=== PATIENT | male | born 1965 | race Caucasian/White ===

== ENCOUNTER 2023-08-12 01:51 | Emergency (ER) | payer BC, SELFPAY ==
[2023-08-12 01:54] VITALS: BP 183/100
--- NOTE | 2023-08-12 02:20 | ED.GENMED ---
History of Present Illness
General
Chief Complaint: Musculo-Skeletal Complaint
Source: patient and spouse
Time Seen by Provider: 08/12/23 02:12
Travel History
Have you had any contact with someone who has COVID-19?: No
Do you have any symptoms of coronavirus? Fever > 100 degrees, chills, cough, shortness of breath, sore throat, loss of taste or smell, muscle aches, or headache?: No
History of Present Illness
History of Present Illness:
57-year-old male presents to the emergency room complaining of pain in his neck radiating to his right shoulder and arm. Pain has been present for the past couple weeks but has become more severe over the past couple days. Tonight the pain was so
severe it was preventing him from sleeping. Pain is worse when he extends his neck backwards. No fever or chills. No recent trauma. He was prescribed a muscle relaxant and ibuprofen by his family doctor but this has not helped. No weakness in
his right arm. No specific chest pain.
Past History
Past History
ED Past Medical History: Other (Syncope with a positive tilt table test on Toprol XL for 14 years, sleep apnea with HS CPAP, mild hypertension)
Social History
Tobacco: Non-smoker
Alcohol: None
Family History
Family History: CAD and Other (He has a grandfather with polycystic kidneys but he has been tested and is negative)
Phy Exam
Physical Exam
Physical Exam:
General: Awake, Alert, Oriented X3. Patient peers uncomfortable, pacing in the room. Pain exacerbated by extension at the neck of compression on the top of his head
Vitals: unremarkable
Head: Atraumatic
Eyes: Pupils equal, EOMI
Throat: Airway intact, no exudates
Neck: Trachea midline
Lungs: Clear and equal b/l
Heart: Regular rate, no murmurs
Abd: Soft, Nontender, No pulsatile mass
Neuro: Cranial nerves intact, muscle strength equal bilaterally
Skin: Warm, dry, no rash
Extremities: pulses equal b/l, no edema
Course
Orders/Labs/Results
Orders:
Orders
08/12/23 02:19
HYDROmorphone [Dilaudid] 0.5 mg IV NOW STA
08/12/23 02:20
Electrocardiogram (*1) Urgent
Reason for Study: Chest Pain
EKG- Treatment ONCE
08/12/23 02:34
Basic Metabolic Panel Urgent
Complete Blood Count/With Diff Urgent
Troponin I Urgent
08/12/23 02:48
Gabapentin [Neurontin] 300 mg PO NOW STA
08/12/23 03:40
Dexamethasone [Decadron] 4 mg PO NOW STA
Abnormal Lab Results
08/12/23
02:34
MCH 31.7 H pg
(27.0-31.0)
BUN 24 H mg/dl
(9-20)
Glucose 109 H mg/dl
(70-99)
08/12/23 02:34
08/12/23 02:34
Vital Signs
Initial and Last Documented VS:
Initial Vital Signs
Temp Pulse Resp BP Pulse Ox
97.9 F 57 16 183/100 100
08/12/23 01:54 08/12/23 01:54 08/12/23 01:54 08/12/23 01:54 08/12/23 01:54
Last Documented Vital Signs
Temp Pulse Resp BP Pulse Ox
97.9 F 49 14 132/86 99
08/12/23 01:54 08/12/23 02:43 08/12/23 02:43 08/12/23 02:43 08/12/23 02:43
MDM/Problems Addressed
Differential Diagnosis Includes:
Cervical radiculopathy, shingles, anginal equivalent
MDM/Problems Addressed:
Patient presents with pain emanating from the neck down to his shoulder and arm. He has an MRI as an outpatient which does not fact show changes throughout his cervical spine particular at the C5-C6 level. At that level he has central disc
herniation. Patient treated with gabapentin, steroids. We will discharge him with prescriptions for gabapentin, Medrol Dosepak and oxycodone. He has an appointment with spine surgery on Sunday.
*Pulse Oximetry
Patient hypoxic: no
*Critical Care Note
Total Time (30-74mins, 75-104mins- exclusive of procedures): Not Applicable
ED Attending Note
-
Portions of this chart may have been created with voice recognition software.� Occasional wrong word or��sound alike� substitutions may have occurred due to the inherent limitations of voice recognition software.
Discharge Plan
Departure
Patient Disposition: Home (Routine Discharge)
Date of Disposition: 08/12/23
Time of Disposition: 03:41
Patient with high blood pressure during this ER visit?: No
Condition: Good
Discharge Problem:
Cervical radiculopathy
Instructions: Radiculopathy (DC)
Prescriptions:
New
gabapentin 300 mg capsule
300 mg PO TID PRN (Reason: pain) Qty: 30 0RF
methylprednisolone [Medrol (Marcus)] 4 mg tablets,dose pack
See Rx Instructions .ROUTE .COMPLEX Qty: 21 0RF
Rx Instructions:
orally per package directions
oxycodone 5 mg tablet
5 mg PO Q6H PRN (Reason: Pain) Qty: 12 0RF
No Action
cholecalciferol (vitamin D3) 2,000 UNIT tablet
2,000 unit PO DAILY
omega 1-cgx-ekb-fish oil [Fish Oil] 1 EACH capsule
2,000 mg PO DAILY
ascorbic acid (vitamin C) [Vitamin C] 1,000 mg Tablet
1,000 mg PO DAILY
vitamin B complex [B Complex] Capsule
1 cap PO DAILY
zinc 50 mg Capsule
50 mg PO DAILY
vitamin K2 100 mcg Capsule
100 mcg PO DAILY
Fish Oil
1 tab PO DAILY
cinnamon bark extract
150 mg PO DAILY
magnesium
177 mg PO DAILY
magnesium
77 mg PO DAILY
olive leaf extract
750 mg PO DAILY
turmeric
1,500 mg PO DAILY
Referrals:
Petey Guerra MD [Family Provider] -
Interventions
Interventions:
*Risk Screen - Suicide Last Done: 08/12/23 01:54
*General Assessment Last Done: 08/12/23 01:54
*Neglect/Abuse Screening Last Done: 08/12/23 01:54
*ED COVID-19 Vaccine History Last Done: 08/12/23 02:36
*Nursing Disposition Last Done: 08/12/23 04:08
ED-Musculoskeletal Assessment Last Done: 08/12/23 02:55
Discharge Date and Time
Print Language: MALTESE
[2023-08-12 02:39] VITALS: BMI 27.2
[2023-08-12 02:43] VITALS: BP 132/86
[2023-08-12 02:43] LABS: % Basophils 0.5 % (0-2); % Eosinophils 2.9 % (0-6); % Immature Granulocytes 0.3 % (0-0.5); % Lymphocytes 28.7 % (20.5-51.1); % Monocytes 8.3 % (1.7-9.3); % Neutrophils 59.3 % (42.2-75.2); Absolute Eosinophils 0.2 10^3/uL (0-0.7); Absolute Lymphocytes 1.9 10^3/uL (1.2-3.4); Absolute Monocytes 0.5 10^3/uL (0.1-0.6); Absolute Neutrophils 3.8 10^3/uL (1.4-6.5); Hematocrit 41.4 % (39.0-52.0); Hemoglobin 15.1 g/dL (13.0-18.0); Mean Corp Hgb Conc. 36.5 g/dL (33.0-37.0); Mean Corpuscular Hgb 31.7 pg (27.0-31.0); Mean Corpuscular Volume 86.8 fL (80.0-94.0); Nucleated Red Blood Cells % 0 % (-); Platelet Count 226 10^3/uL (130-400); Red Blood Cell Count 4.77 10^6/uL (4.70-6.10); Red Cell Dist. Width 11.9 % (11.5-14.5); White Blood Cell Count 6.5 10^3/uL (4.8-10.8)
[2023-08-12] MEDS: NEURONTIN 300 MG PO (02:54)
[2023-08-12 03:00] LABS: Blood Urea Nitrogen 24 mg/dl (9-20); Calcium 9.1 mg/dl (8.4-10.2); Carbon Dioxide 27 mmol/L (22-30); Chloride 104 mmol/L (98-107); Estimated Creatinine Clearance 77 ml/min; Glucose 109 mg/dl (70-99); Potassium 4.3 mmol/L (3.5-5.1); Sodium 139 mmol/L (135-145); eGFR > 60.00
[2023-08-12 03:11] LABS: Troponin I 0.015 ng/ml
[2023-08-12] MEDS: DECADRON 4 MG PO (04:00)
== END 2023-08-12 04:08 | disposition home or self-care (01) ==
LOC: EMR 01:51
PROVIDERS: EMERGENCY PHYSICIAN Emergency Medicine; FAMILY PHYSICIAN Internal Medicine
DX: M54.12 Radiculopathy, cervical region (principal); G47.30 Sleep apnea, unspecified; I10 Essential (primary) hypertension; Z82.49 Family history of ischemic heart disease and other diseases of the circulatory system
CPT/HCPCS: 99283; 96374; 80048; 84484; 85025; 93005

== ENCOUNTER 2023-08-21 13:46 | Emergency (ER) | payer BC, SELFPAY ==
[2023-08-21 13:55] VITALS: BP 178/110
--- NOTE | 2023-08-21 16:06 | ED.GENMED ---
History of Present Illness
General
Chief Complaint: Musculo-Skeletal Complaint
Source: patient
Exam Limitations: none
Time Seen by Provider: 08/21/23 15:10
Nursing documentation reviewed up to this point in time: agreed with
Travel History
Have you had any contact with someone who has COVID-19?: No
Do you have any symptoms of coronavirus? Fever > 100 degrees, chills, cough, shortness of breath, sore throat, loss of taste or smell, muscle aches, or headache?: No
History of Present Illness
History of Present Illness:
Patient is a 57-year-old male who presents to the ER for evaluation. Patient has had cervical radiculopathy for the past 4 weeks and has been seen by Dr. Cristina of [facility]. He did have an MRI and did have an epidural August 15. He continues to
have neck pain but now the past 1 week he has had some low back pain and has pain shooting down both legs worse in the left leg associated with numbness tingling and he does feel slightly weak at times. He reports because of his neck pain he has
been sleeping semisitting up and more on his lower back. HE has no bowel/bladder incontinence. He at times also feels pain in his groin/penis region . HE has no urinary frequency urgency or dysuria. He was seen here previously on August 11 for
the neck pain at that time was prescribed gabapentin oxycodone and steroids. He will still take some oxycodone at night to sleep but is not taking gabapentin or steroids. He does however have a new pack of steroids at home. He tells me he called
his physician today and because of the symptoms in his legs which are new for the past week and with a concern for possible weakness he was sent to the ER for evaluation.
Past History
Past History
ED Past Medical History: Other (Syncope with a positive tilt table test on Toprol XL for 14 years, sleep apnea with HS CPAP, mild hypertension)
Social History
Tobacco: Non-smoker
Alcohol: None
Family History
Family History: CAD and Other (He has a grandfather with polycystic kidneys but he has been tested and is negative)
Review of Systems
Review of Systems
Allergies reviewed?: Yes
All Other Systems: ROS reviewed and negative except as documented in HPI and ROS
Constitutional: Reports no symptoms
EENT: Reports no symptoms
Respiratory: Reports no symptoms
Cardiac: Reports no symptoms
ABD/GI: Reports no symptoms
: Denies flank pain, incontinence or urgency
Musculoskeletal: Reports neck pain and back pain
Skin: Reports no symptoms
Neurological: Reports numbness (intermittent numbness/tingling weakness in left leg feels also slightly weaker in right hand)
Psychiatric: Reports no symptoms
Phy Exam
General Physical Exam
General Presentation: no apparent distress
General age: appears stated age
General Skin: warm and dry
General Hydration: appears well hydrated
Neurological Exam
Neurological Exam: alert, oriented x3 and other (Intact sensation to bilateral upper and lower extremities normal nuisance animal damage control agent strength to bilateral upper extremities normal strength bilateral lower legs normal dorsiflexion plantarflexion bilaterally normal
patellar reflexes )
Musculoskeletal Exam
Musculoskeletal Exam: full ROM and other (no swelling on exam)
Skin Exam
Skin Exam: normal color and warm/dry
Course
Orders/Labs/Results
Orders:
Orders
08/21/23 16:14
Dexamethasone Sod Phosphate [Decadron] 10 mg IM NOW STA
Vital Signs
Initial and Last Documented VS:
Initial Vital Signs
Pulse Resp Pulse Ox
76 18 96
08/21/23 13:54 08/21/23 13:54 08/21/23 13:54
Last Documented Vital Signs
Temp Pulse Resp BP Pulse Ox
98.9 F 65 18 167/93 96
08/21/23 13:55 08/21/23 16:54 08/21/23 13:54 08/21/23 16:54 08/21/23 13:54
MDM/Problems Addressed
Differential Diagnosis Includes:
Not limited to cervical radiculopathy, sciatica
MDM/Problems Addressed:
Patient as document is a 57-year-old male with known cervical radiculopathy had MRI had an epidural now also with pain radiating from back to left lower leg no bowel or bladder incontinence. He did feel some weakness in his leg and hand
intermittently which is what prompted him to come to the ER. He is followed by orthopedics Dr. Colorado at [facility].
On exam patient is in no acute distress and has no weakness on exam he has normal upper lower extremity strength normal patellar reflexes normal sensation no bowel or bladder incontinence. Patient is currently not on steroids we will give 1 dose of
Decadron here in the ER I did speak with Amanuel on-call Dr. Dominguez and given the fact that patient has a normal exam with discharge home with outpatient followed by orthopedics tomorrow patient is to call the office. Will send a higher dose for
steroids as he did not feel the Medrol Dosepak previously given helped and will also resend gabapentin. Patient does have oxycodone if needed. He is to return if any worsening of symptoms.
*Pulse Oximetry
Patient hypoxic: no
*Critical Care Note
Total Time (30-74mins, 75-104mins- exclusive of procedures): Not Applicable
Data Reviewed
Review of Other/Old Records Reveals: Other (previous ED visit )
ED Attending Note
-
Portions of this chart may have been created with voice recognition software.� Occasional wrong word or��sound alike� substitutions may have occurred due to the inherent limitations of voice recognition software.
Discharge Plan
Departure
Patient Disposition: Home (Routine Discharge)
Date of Disposition: 08/21/23
Time of Disposition: 16:41
Patient with high blood pressure during this ER visit?: Yes
Condition: Fair
Covid-19: Not Applicable
Discharge Problem:
Radiculopathy
Instructions: Radiculopathy (DC), Radiculopathy of the neck and back (including sciatica)
Prescriptions:
New
prednisone 50 mg tablet
50 mg PO DAILY Qty: 5 0RF
gabapentin 300 mg capsule
300 mg PO TID Qty: 20 0RF
No Action
cholecalciferol (vitamin D3) 2,000 UNIT tablet
2,000 unit PO DAILY
omega 7-cyj-vhy-fish oil [Fish Oil] 1 EACH capsule
2,000 mg PO DAILY
ascorbic acid (vitamin C) [Vitamin C] 1,000 mg Tablet
1,000 mg PO DAILY
vitamin B complex [B Complex] Capsule
1 cap PO DAILY
zinc 50 mg Capsule
50 mg PO DAILY
vitamin K2 100 mcg Capsule
100 mcg PO DAILY
Fish Oil
1 tab PO DAILY
cinnamon bark extract
150 mg PO DAILY
magnesium
177 mg PO DAILY
magnesium
77 mg PO DAILY
olive leaf extract
750 mg PO DAILY
turmeric
1,500 mg PO DAILY
gabapentin 300 mg capsule
300 mg PO TID PRN (Reason: pain) Qty: 30 0RF
methylprednisolone [Medrol (Marcus)] 4 mg tablets,dose pack
See Rx Instructions .ROUTE .COMPLEX Qty: 21 0RF
Rx Instructions:
orally per package directions
oxycodone 5 mg tablet
5 mg PO Q6H PRN (Reason: Pain) Qty: 12 0RF
Referrals:
Petey Guerra MD [Family Provider] -
Sushil Colorado MD [Non-Admitting Privileges] -
Activity Restrictions/Additional Instructions:
As discussed you were given 1 dose of steroid in your muscle here in the ER you may start steroids tomorrow: Prednisone 50 mg once daily for the next 5 days. In addition a new prescription for Gabapentin was sent to the pharmacy take as directed.
You may take your existing oxycodone if needed for pain and sleep. Follow-up with your orthopedic doctor give him a call tomorrow. Return if any worsening of symptoms, if worsening weakness loss of bowel or bladder worsening pain or any further
concerns.
Interventions
Interventions:
*Risk Screen - Suicide Last Done: 08/21/23 15:17
*General Assessment Last Done: 08/21/23 15:17
*Neglect/Abuse Screening Last Done: 08/21/23 17:03
*Nursing Disposition Last Done: 08/21/23 17:03
ED-Musculoskeletal Assessment Last Done: 08/21/23 15:17
Discharge Date and Time
Print Language: ITALIAN
[2023-08-21] MEDS: DECADRON 10 MG IM (16:23)
[2023-08-21 16:54] VITALS: BP 167/93
[2023-08-21 17:03] VITALS: BP 167/93
== END 2023-08-21 17:04 | disposition home or self-care (01) ==
LOC: EMR 13:46
PROVIDERS: EMERGENCY PHYSICIAN Emergency Medicine; FAMILY PHYSICIAN Internal Medicine
DX: M54.12 Radiculopathy, cervical region (principal); G47.30 Sleep apnea, unspecified; I10 Essential (primary) hypertension; Z82.49 Family history of ischemic heart disease and other diseases of the circulatory system
CPT/HCPCS: 99282; 96372

== ENCOUNTER 2023-09-19 06:16 | Inpatient (IN) | payer BC, SELFPAY ==
--- NOTE | 2023-09-11 11:45 | CM ---
Patient is scheduled for cervical spine surgery on 09/19/23. Spoke with patient prior to surgery via telephone. Introduced role of the Orthopedic Navigator. Patient reports that he lives with his and 25 year old son in a multi story home. There
are seven steps to enter and a flight of steps to the second floor. He currently functions independently. He has a cpap, cervical collar and crutches. PCP is Petey Guerra.
Discussed orthopedic program, post surgical plans and tentative plan for patient to return home when directed by surgeon. Patient is in agreement with tentative plan and will have support from his when he goes home.
Plan: Orthopedic Navigator will remain available to assist with the care of patient and will reassess discharge needs after surgery.
[2023-09-12 08:18] VITALS: BMI 25.6
[2023-09-13 12:53] VITALS: BMI 25.6
[2023-09-19] VITALS (24 sets, daily range): BP systolic 129–185; BP diastolic 74–121; PULSE 82; O2SAT 97
[2023-09-19] MEDS: LYRICA 150 MG PO (07:03)
[2023-09-19] MEDS: CELEBREX 200 MG PO (07:03)
[2023-09-19] MEDS: TYLENOL 1000 MG PO ×3 (07:03→21:12)
[2023-09-19] MEDS: SKELAXIN 800 MG PO (07:04)
[2023-09-19] MEDS: NORMOSOL-R 1000 IV ×3 (07:04→21:12)
[2023-09-19] MEDS: DILAUDID 0.5 MG IV (09:35)
[2023-09-19] MEDS: ZOFRAN 4 MG IV ×2 (10:46→17:45)
--- NOTE | 2023-09-19 11:31 | SUR.PHASEI ---
1045 -patient medicated for pain in pacu with dilaudid with relief, zofran for slight nausea with relief, good movement all extremities and strength. C/o of numbness and tingling in legs prior to surgery. a little less now. C/o dizziness on
arrival to hospital - still persists - recent sinus infection. Still congestion. discomfort down to 4 now and able to sleep - maintains sats with O2 on. to visit in pacu and home for now - Will bring CPAP machine
[2023-09-19] MEDS: SENOKOT 17.1999999999999993 MG PO (11:59)
[2023-09-19] MEDS: PROTONIX 40 MG PO (11:59)
[2023-09-19] MEDS: VITAMIN D3 (cholecalciferol) 50 MCG PO (11:59)
[2023-09-19] MEDS: COLACE 100 MG PO (11:59)
[2023-09-19] MEDS: ANESTHETIC LOZENGE 1 LOZENGE PO (12:48)
[2023-09-19] MEDS: ULTRAM 50 MG PO (12:48)
--- NOTE | 2023-09-19 13:00 | PTCARENOTE ---
Received pt from PACU in bed, AOx3, c/o feeling dizzy and nauseated. 5mg IV Compazine given. VSS. 98% on 4L, will wean oxygen. LS shallow. Good sensation and movement in all 4 extremities. Soft cervial collar in place, anterior neck dressing
observed, c/d/i. Will continue to monitor.
[2023-09-19] MEDS: MAALOX 30 ML PO (13:05)
[2023-09-19] MEDS: COMPAZINE 5 MG IV (13:20)
--- NOTE | 2023-09-19 14:30 | W.PN.ORTHO ---
Today's Communication / Plan
-
D/c when clinically stable
Assessment
.
Distal Motor Intact: Yes
Dressing:
Clean, dry and intact.
Assessment:
Cervical stenosis s/p C5-C6, C6-C7 ACDF w/ [facility] 09/19/23
DVT prophylaxis - b/l SCDs/TEDs
Acute on chronic dizziness - sounds vertigo related - will order Meclizine q8hprn
- Pain meds adjusted to hopefully reduce dizziness
HTN - monitor BP
Chronic post-nasal drip - Mucinex ordered at request of patient
SHAY, compliant w/ CPAP - monitor O2
- IS
- Resume CPAP HS
GERD - resume PPI therapy
HLD
OA
Anxiety
Plan
.
Surgery / Date: C5-C6, C6-C7 ACDF w/ [facility] 09/19/23
DVT Prophylaxis: Other (b/l SCDs/TEDs )
Activity:
Out of bed.
PT/OT
Discharge Plan: Home
Subjective
.
.:
Patient resting comfortably in his bed.
Groggy from GA/pre-op pain meds; however, is arousable for verbal stimuli.
Acute on chronic dizziness - will order Meclizine.
Mild sore throat and dysphagia. Denies SOB.
Vital Signs and Labs
.
Vital Signs and Labs:
Temp Pulse Resp BP Pulse Ox
98.4 F 84 16 151/86 98
09/19/23 12:28 09/19/23 12:28 09/19/23 12:28 09/19/23 12:28 09/19/23 12:28
Physical Exam
-
HEENT: No pallor, cyanosis, or jaundice. Throat clear.
NECK: Supple. + Cervical collar.
RESPIRATORY: Lungs clear to auscultation.
CVS: S1, S2 normal. RRR.�
ABDOMEN: Soft, non-tender. No distension.
EXTREMITIES: Strength equal, no calf pain with palpation/dorsiflexion. Calves soft.
MANAGER PRINT: AOx3. No focal deficits. clay artist grossly intact
[2023-09-19] MEDS: ANTIVERT 12.5 MG PO (15:22)
[2023-09-19] MEDS: ANCEF 5 IV ×2 (15:44→23:10)
[2023-09-19] MEDS: LYRICA 75 MG PO (20:35)
[2023-09-19] MEDS: MUCINEX 600 MG PO (21:12)
[2023-09-19] MEDS: COLACE PO (21:15)
[2023-09-19] MEDS: SENOKOT PO (21:15)
[2023-09-20] MEDS: ROXICODONE 5 MG PO (01:29)
[2023-09-20] MEDS: TYLENOL PO (02:49)
[2023-09-20 04:31] VITALS: BP 154/83
[2023-09-20 05:42] LABS: Hematocrit 40.2 % (39.0-52.0); Hemoglobin 14.4 g/dL (13.0-18.0)
[2023-09-20 06:04] LABS: Blood Urea Nitrogen 13 mg/dl (9-20); Calcium 9.2 mg/dl (8.4-10.2); Carbon Dioxide 27 mmol/L (22-30); Chloride 102 mmol/L (98-107); Estimated Creatinine Clearance 98 ml/min; Glucose 105 mg/dl (70-99); Potassium 4.6 mmol/L (3.5-5.1); Sodium 137 mmol/L (135-145); eGFR > 60.00
--- NOTE | 2023-09-20 06:40 | PTCARENOTE ---
Pt with much less dizziness this am. Denies nausea.
[2023-09-20 07:50] VITALS: BP 146/87
[2023-09-20] MEDS: NORMOSOL-R IV (07:54)
--- NOTE | 2023-09-20 07:58 | W.DS.TRANS ---
DC Summary - Cork Wirer
-
Discharge Instructions:
Discharge Diagnosis/Procedures Cervical stenosis s/p C5-C6, C6-C7 ACDF w/ Dr
King 09/19/23
Diet Regular
Activity As tolerated
Additional Activity No heavy lifting >10 lbs
Driving Restrictions Not until seen by your Dr
Bathing Restrictions OK to shower in 4 days
Instructions:
Stand-Alone Forms: [facility] Cervical D/C Inst.
Changes to Home Medications: No
Discharge Medications:
DC Medications w/original date entered in [employer]
cholecalciferol (vitamin D3) 50 mcg (2,000 unit) tablet 2,000 unit PO DAILY Supplement 08/31/18
omega 7-pye-zhn-fish oil 300 mg-1,000 mg capsule (Fish Oil) 2,000 mg PO DAILY Supplement 08/31/18
cinnamon bark extract 150 mg PO DAILY Supplement 08/12/23
olive leaf extract 500 mg PO DAILY Supplement 08/12/23
vitamin K2 100 mcg capsule 100 mcg PO DAILY Supplement 08/12/23
Curcumin 30 mg PO DAILY Supplement 09/11/23
ascorbic acid (vitamin C) 500 mg tablet (Vitamin C) 500 mg PO DAILY Supplement 09/11/23
fish oil-dha-epa 1,600 mg PO DAILY Supplement 09/11/23
audrey root extract 550 mg PO DAILY Supplement 09/11/23
ibuprofen 200 mg tablet 200 mg PO HS Anti-Inflammatory 09/11/23
magnesium L-threonate 77 mg PO DAILY Supplement 09/11/23
magnesium glycinate 100 mg (as glycinate) tablet 100 mg PO DAILY Supplement 09/11/23
omeprazole magnesium 20 mg tablet,delayed release (Prilosec OTC) 20 mg PO DAILY Gastrointestinal Issue 09/11/23
vitamin B complex 1 tab PO DAILY Supplement 09/11/23
zinc acetate 50 mg (zinc) capsule 50 mg PO Q48H Supplement 09/11/23
Home Medication Changes
Pending Results: No
--- NOTE | 2023-09-20 07:58 | W.PN.SP ---
Today's Communication / Plan
-
s/p acdf
Doing well
D/c
Subjective / Objective
Subjective Data
PT sdoing well
Pre-op symptoms better
Still some pain
Objective Data
Vital Signs
Temp Pulse Resp BP Pulse Ox
98.3 F 69 19 146/87 99
09/20/23 07:50 09/20/23 07:50 09/20/23 07:50 09/20/23 07:50 09/20/23 07:50
Intake and Output
09/19/23 09/20/23 09/21/23
06:59 06:59 06:59
Intake Total 3690 / 3690
Output Total 2550 / 2550
Balance 1140 / 1140
Intake:
Oral fluids 1490 / 1490
IV fluids (Total) 2200 / 2200
normosol 400 / 400
Output:
Urine, Voided 2550 / 2550
Lab Data
09/20/23 05:09
09/20/23 05:09
Physical Exam
-
No focal deficits
[2023-09-20] MEDS: VITAMIN D3 (cholecalciferol) 50 MCG PO (07:59)
[2023-09-20] MEDS: PROTONIX 40 MG PO (07:59)
[2023-09-20] MEDS: COLACE 100 MG PO (07:59)
[2023-09-20] MEDS: MUCINEX 600 MG PO (07:59)
[2023-09-20] MEDS: TYLENOL 1000 MG PO (07:59)
[2023-09-20] MEDS: SENOKOT 17.1999999999999993 MG PO (07:59)
[2023-09-20] MEDS: LYRICA 75 MG PO (07:59)
--- NOTE | 2023-09-20 08:42 | CM ---
Reviewed chart and held rounds with PT, OT and RN. Patient had planned cervical spine surgery with Dr. King on 09/18. Met with patient at bedside. Confirmed information previously obtained for assessment and discussed discharge plans. Patient
continues to plan to return home at discharge. He will have support from his when he goes home.
Patient has crutches at home.
Patient will use [facility] pharmacy for discharge prescriptions.
Discharge plans were reviewed with patient's on 09/18. She will be present for therapy this morning.
[2023-09-20 09:45] VITALS: BP 130/78; PULSE 80; O2SAT 97
--- NOTE | 2023-09-20 10:23 | W.PN.ORTHO ---
Today's Communication / Plan
-
Await OT recs. Did well w/ PT recs.
D/c likely for later today if remaining clinically stable.
Assessment
.
Distal Motor Intact: Yes
Dressing:
Clean, dry and intact.
Assessment:
Cervical stenosis s/p C5-C6, C6-C7 ACDF w/ [facility] 09/19/23
DVT prophylaxis - b/l SCDs/TEDs
Acute on chronic dizziness - likely vertigo related d/t chronic sinus issues - improvement noted w/ Meclizine q8hprn
- Pain meds adjusted to reduce dizziness
- Will Rx Meclizine upon d/c
HTN - BPs stable
Chronic post-nasal drip - continue OTC Mucinex
SHAY, compliant w/ CPAP - O2 stable on RA
- IS
- Resumed CPAP HS
GERD - resumed PPI therapy
HLD
OA
Anxiety
Plan
.
Surgery / Date: C5-C6, C6-C7 ACDF w/ [facility] 09/19/23
DVT Prophylaxis: Other (b/l SCDs/TEDs)
Activity:
Out of bed.
PT/OT
Discharge Plan: Home
Subjective
.
.:
Patient resting comfortably in bed this AM.
Dizziness significantly improved w/ measures taken yesterday.
Incisional pain overall well controlled. AM labs stable.
Eager for potential d/c today.
Vital Signs and Labs
.
Vital Signs and Labs:
Lab Results
09/20/23 05:09
09/20/23 05:09
Temp Pulse Resp BP Pulse Ox
98.3 F 69 19 146/87 99
09/20/23 07:50 09/20/23 07:50 09/20/23 07:50 09/20/23 07:50 09/20/23 08:00
Physical Exam
-
HEENT: No pallor, cyanosis, or jaundice. Throat clear.
NECK: Supple. + Cervical collar.
RESPIRATORY: Lungs clear to auscultation.
CVS: S1, S2 normal. RRR.
ABDOMEN: Soft, non-tender. No distension.
EXTREMITIES: Strength equal, no calf pain with palpation/dorsiflexion. Calves soft.
CHECK EXAMINER: AOx3. No focal deficits. administrative resources associate grossly intact
--- NOTE | 2023-09-20 10:48 | W.DS.TRANS ---
DC Summary - Application Tester
-
Discharge Instructions:
Discharge Diagnosis/Procedures Cervical stenosis s/p C5-C6, C6-C7 ACDF w/ Dr
King 09/19/23
Diet Regular
Activity As tolerated
Additional Activity No heavy lifting >10 lbs
Driving Restrictions Not until seen by your Dr
Bathing Restrictions OK to shower in 4 days
Instructions:
Stand-Alone Forms: [facility] Cervical D/C Inst.
Changes to Home Medications: Yes
Discharge Medications:
DC Medications w/original date entered in [employer]
cholecalciferol (vitamin D3) 50 mcg (2,000 unit) tablet 2,000 unit PO DAILY Supplement 08/31/18
omega 2-mbk-uid-fish oil 300 mg-1,000 mg capsule (Fish Oil) 2,000 mg PO DAILY Supplement 08/31/18
cinnamon bark extract 150 mg PO DAILY Supplement 08/12/23
olive leaf extract 500 mg PO DAILY Supplement 08/12/23
vitamin K2 100 mcg capsule 100 mcg PO DAILY Supplement 08/12/23
Curcumin 30 mg PO DAILY Supplement 09/11/23
ascorbic acid (vitamin C) 500 mg tablet (Vitamin C) 500 mg PO DAILY Supplement 09/11/23
fish oil-dha-epa 1,600 mg PO DAILY Supplement 09/11/23
audrey root extract 550 mg PO DAILY Supplement 09/11/23
magnesium L-threonate 77 mg PO DAILY Supplement 09/11/23
magnesium glycinate 100 mg (as glycinate) tablet 100 mg PO DAILY Supplement 09/11/23
omeprazole magnesium 20 mg tablet,delayed release (Prilosec OTC) 20 mg PO DAILY Gastrointestinal Issue 09/11/23
vitamin B complex 1 tab PO DAILY Supplement 09/11/23
zinc acetate 50 mg (zinc) capsule 50 mg PO Q48H Supplement 09/11/23
Saccharomyces boulardii 250 mg capsule (Florastor) 250 mg PO BID #10 caps 09/20/23
acetaminophen 500 mg tablet (Tylenol Extra Strength) 1,000 mg (2 x 500 mg) PO Q6H #30 tabs 09/20/23
cephalexin 500 mg capsule 500 mg PO QID #20 caps 09/20/23
docusate sodium 100 mg capsule 100 mg PO BID #30 caps 09/20/23
guaifenesin 600 mg tablet, extended release 12 hr 600 mg PO Q12 #30 tabs 09/20/23
meclizine 12.5 mg tablet 12.5 mg PO Q8HPRN PRN dizziness #30 tabs 09/20/23
ondansetron HCl 4 mg tablet 4 mg PO Q6H PRN nausea and vomiting #30 tabs 09/20/23
oxycodone 5 mg tablet 5 - 10 mg (1 - 2 x 5 mg) PO Q6H PRN moderate-severe pain #30 tabs 09/20/23
pregabalin 75 mg capsule 75 mg PO BID neuropathic pain #15 caps 09/20/23
sennosides 8.6 mg tablet (Senna Laxative) 17.2 mg (2 x 8.6 mg) PO BID #30 tabs 09/20/23
Home Medication Changes
Saccharomyces boulardii 250 mg capsule (Florastor) 250 mg PO BID #10 caps 09/20/23
acetaminophen 500 mg tablet (Tylenol Extra Strength) 1,000 mg (2 x 500 mg) PO Q6H #30 tabs 09/20/23
cephalexin 500 mg capsule 500 mg PO QID #20 caps 09/20/23
docusate sodium 100 mg capsule 100 mg PO BID #30 caps 09/20/23
guaifenesin 600 mg tablet, extended release 12 hr 600 mg PO Q12 #30 tabs 09/20/23
meclizine 12.5 mg tablet 12.5 mg PO Q8HPRN PRN dizziness #30 tabs 09/20/23
ondansetron HCl 4 mg tablet 4 mg PO Q6H PRN nausea and vomiting #30 tabs 09/20/23
oxycodone 5 mg tablet 5 - 10 mg (1 - 2 x 5 mg) PO Q6H PRN moderate-severe pain #30 tabs 09/20/23
pregabalin 75 mg capsule 75 mg PO BID neuropathic pain #15 caps 09/20/23
sennosides 8.6 mg tablet (Senna Laxative) 17.2 mg (2 x 8.6 mg) PO BID #30 tabs 09/20/23
Pending Results: No
[2023-09-20 10:52] VITALS: BP 160/90; BP 163/88; PULSE 67; O2SAT 95
[2023-09-20 11:51] VITALS: BP 159/90
== END 2023-09-20 12:36 | disposition home or self-care (01) | DRG 472 ==
LOC: 2 SOUTH 06:16
PROVIDERS: Physician Assistant; ADMITTING PHYSICIAN Orthopaedic Surgery Orthopaedic Surgery of the Spine; FAMILY PHYSICIAN Internal Medicine
PROC: 0RT30ZZ Resection of Cervical Vertebral Disc, Open Approach (ICD-10-PCS; 2023-09-19)
PROC: 0RG20AJ Fusion of 2 or more Cervical Vertebral Joints with Interbody Fusion Device, Posterior Approach, Anterior Column, Open Approach (ICD-10-PCS; 2023-09-19)
PROC: 00NW0ZZ Release Cervical Spinal Cord, Open Approach (ICD-10-PCS; 2023-09-19)
DX: M48.02 Spinal stenosis, cervical region (principal); M50.022 Cervical disc disorder at C5-C6 level with myelopathy; M50.023 Cervical disc disorder at C6-C7 level with myelopathy; I10 Essential (primary) hypertension; R09.82 Postnasal drip; G47.33 Obstructive sleep apnea (adult) (pediatric); K21.9 Gastro-esophageal reflux disease without esophagitis; E78.5 Hyperlipidemia, unspecified; M19.90 Unspecified osteoarthritis, unspecified site; F41.9 Anxiety disorder, unspecified
CPT/HCPCS: 36415; 72020; 80048; 85014; 85018; 87070; 93005; 97116; 97162; 97165; 97530; C1713

== ENCOUNTER 2023-09-20 21:29 | Emergency (ER) | payer BC, SELFPAY ==
[2023-09-20 21:31] VITALS: BP 165/92
--- NOTE | 2023-09-21 00:06 | ED.GENMED ---
History of Present Illness
General
Chief Complaint: Swallowing Problem
Source: patient and family
Exam Limitations: none
Time Seen by Provider: 09/20/23 23:47
Nursing documentation reviewed up to this point in time: agreed with
History of Present Illness
History of Present Illness:
This a pleasant 57-year-old male that presents with the feeling that the pill is stuck in his throat. Patient is able to swallow food and water and is tolerating his secretions. Patient was discharged from [facility] today after anterior
cervical fusion surgery. Patient was taking his nighttime medications when he felt one of the gel pills get stuck. He has been able to eat since then. He was told to come into the emergency department for evaluation. Patient denies any other
complaints
Past History
Past History
ED Past Medical History: Other (Syncope with a positive tilt table test on Toprol XL for 14 years, sleep apnea with HS CPAP, mild hypertension)
Social History
Tobacco: Non-smoker
Alcohol: None
Family History
Family History: CAD and Other (He has a grandfather with polycystic kidneys but he has been tested and is negative)
Review of Systems
Review of Systems
Allergies reviewed?: Yes
All Other Systems: ROS reviewed and negative except as documented in HPI and ROS
Constitutional: Reports no symptoms
EENT: Reports sore throat
Respiratory: Reports no symptoms
Cardiac: Reports no symptoms
ABD/GI: Reports no symptoms
: Reports no symptoms
Musculoskeletal: Reports no symptoms
Skin: Reports no symptoms
Neurological: Reports no symptoms
Endocrine: Reports no symptoms
Hematologic/Lymphatic: Reports no symptoms
Psychiatric: Reports no symptoms
Phy Exam
General Physical Exam
General Presentation: well appearing and no apparent distress
General age: appears stated age
General Skin: warm
General Habitus: normal
General Mental: alert
Pulmonary Exam
Pulmonary Exam: no respiratory distress
Neurological Exam
Neurological Exam: alert and oriented x3
Musculoskeletal Exam
Musculoskeletal Exam: full ROM, no edema and other (Wearing a soft neck collar)
Skin Exam
Skin Exam: normal color and warm/dry
Psychiatric Exam
Psychiatric Exam: normal mood/affect
Course
Orders/Labs/Results
Orders:
Orders
09/21/23 00:04
Sucralfate Suspension [Carafate Suspension] 1 gm PO NOW STA
CR Soft Tissue Neck Urgent
Comment:
Reason For Exam: neck pain, possible fb
09/21/23 00:25
Oxycodone [Roxicodone] 5 mg PO NOW STA
09/21/23 00:26
Guaifenesin [Mucinex] 600 mg PO NOW STA
Vital Signs
Initial and Last Documented VS:
Initial Vital Signs
Temp Pulse Resp BP Pulse Ox
98.1 F 68 18 165/92 98
09/20/23 21:31 09/20/23 21:31 09/20/23 21:31 09/20/23 21:31 09/20/23 21:31
Last Documented Vital Signs
Temp Pulse Resp BP Pulse Ox
98.1 F 59 18 156/90 99
09/20/23 21:31 09/21/23 00:48 09/20/23 21:31 09/21/23 00:48 09/21/23 00:48
*Critical Care Note
Total Time (30-74mins, 75-104mins- exclusive of procedures): Not Applicable
ED Attending Note
-
Portions of this chart may have been created with voice recognition software.� Occasional wrong word or��sound alike� substitutions may have occurred due to the inherent limitations of voice recognition software.
Discharge Plan
Departure
Patient Disposition: Home (Routine Discharge)
Date of Disposition: 09/21/23
Time of Disposition: 00:31
Patient with high blood pressure during this ER visit?: Yes
Condition: Good
Discharge Problem:
Pill esophagitis
Instructions: Dysphagia (DC), BLOOD PRESSURE
Prescriptions:
New
sucralfate [Carafate] 100 mg/mL suspension
10 ml PO QID Qty: 200 0RF
No Action
cholecalciferol (vitamin D3) 2,000 UNIT tablet
2,000 unit PO DAILY
omega 5-gvl-icy-fish oil [Fish Oil] 1 EACH capsule
2,000 mg PO DAILY
Hold Instructions: Resume on 09/26/23.
vitamin K2 100 mcg Capsule
100 mcg PO DAILY
Hold Instructions: Resume on 09/26/23.
cinnamon bark extract
150 mg PO DAILY
olive leaf extract
500 mg PO DAILY
Hold Instructions: Resume on 09/26/23.
zinc acetate 50 mg (zinc) Capsule
50 mg PO Q48H
ascorbic acid (vitamin C) [Vitamin C] 500 mg Tablet
500 mg PO DAILY
vitamin B complex Tablet
1 tab PO DAILY
omeprazole magnesium [Prilosec OTC] 20 mg Tablet,Delayed Release (Dr/Ec)
20 mg PO DAILY
magnesium glycinate 100 mg Tablet
100 mg PO DAILY
Curcumin
30 mg PO DAILY
Hold Instructions: Resume on 09/26/23.
fish oil-dha-epa
1,600 mg PO DAILY
Hold Instructions: Resume on 09/26/23.
audrey root extract
550 mg PO DAILY
Hold Instructions: Resume on 09/26/23.
magnesium L-threonate
77 mg PO DAILY
meclizine 12.5 mg Tablet
12.5 mg PO Q8HPRN PRN (Reason: dizziness) Qty: 30 0RF
docusate sodium 100 mg Capsule
100 mg PO BID Qty: 30 0RF
Rx Instructions:
Take twice a day while on Oxycodone for post-surgical bowel regimen.
oxycodone 5 mg Tablet
5 - 10 mg PO Q6H PRN (Reason: moderate-severe pain) Qty: 30 0RF
Rx Instructions:
1 tab for moderate pain, 2 if severe.
Dx lami.
guaifenesin 600 mg Tablet Extended Release 12hr
600 mg PO Q12 Qty: 30 0RF
sennosides [Senna Laxative] 8.6 mg Tablet
17.2 mg PO BID Qty: 30 0RF
Rx Instructions:
Take twice a day while on Oxycodone for post-surgical bowel regimen.
acetaminophen [Tylenol Extra Strength] 500 mg Tablet
1,000 mg PO Q6H Qty: 30 0RF
Rx Instructions:
DO NOT exceed >4000 mg daily.
ondansetron HCl 4 mg tablet
4 mg PO Q6H PRN (Reason: nausea and vomiting) Qty: 30 0RF
cephalexin 500 mg capsule
500 mg PO QID Qty: 20 0RF
Saccharomyces boulardii [Florastor] 250 mg capsule
250 mg PO BID Qty: 10 0RF
Rx Instructions:
Over the counter. Take while on antibiotic.
If unavailable, choose a different antibiotic.
pregabalin 75 mg capsule
75 mg PO BID Qty: 15 0RF
Rx Instructions:
Take twice a day x5 days, then once daily x5 days, then STOP.
Referrals:
Petey Guerra MD [Family Provider] -
Activity Restrictions/Additional Instructions:
Please continue to take your Prilosec as previously directed.
It was a pleasure meeting you and taking part in your care. We hope for your continued healing and wellness.
Please read discharge instructions in their entirety. However, they are for general education and may not describe your exact diagnosis at discharge. Information on your ER visit and medical conditions were discussed with you along with appropriate
follow up information...
If indicated, please take your medications as instructed and indicated on discharge paperwork.
Please schedule a follow up appointment as directed. Call to schedule an appointment
Please return to the emergency department with ANY change in, persisting, or worsening of symptoms. If any of your symptoms do not improve, or persist, or become more severe within 6-12 hours, please return to the emergency department for further
care.
Please return to the emergency department if you develop a headache, neck pain/stiffness, fever greater than 100.4F, chest pain, shortness of breath, persistent nausea, vomiting, slurred speech, difficulty walking, numbness/tingling, weakness, signs
of infection or any other symptoms that are worrisome to you.
If you have any questions or concerns please do not hesitate to call the Hospital at or E-mail me directly at [email or web address]
Interventions
Interventions:
*Risk Screen - Suicide Last Done: 09/20/23 23:59
*General Assessment Last Done: 09/20/23 23:59
*Neglect/Abuse Screening Last Done: 09/20/23 23:59
*Nursing Disposition Last Done: 09/21/23 00:48
ED-EENT Assessment Last Done: 09/20/23 23:56
RH-Nzikos-Tbhziydocv Assessment Last Done: 09/21/23 00:48
ED- Pulmonary Assessment Last Done: 09/20/23 23:55
ED- Neurological Assessment Last Done: 09/20/23 23:52
ED Swallowing Screen Last Done: 09/21/23 00:38
Discharge Date and Time
Discharge Date/Time: 09/21/23 00:50
Print Language: LUXEMBOURGER
[2023-09-21] MEDS: CARAFATE SUSPENSION 1 GM PO (00:35)
[2023-09-21] MEDS: MUCINEX 600 MG PO (00:36)
[2023-09-21] MEDS: ROXICODONE 5 MG PO (00:36)
[2023-09-21 00:48] VITALS: BP 156/90
== END 2023-09-21 00:50 | disposition home or self-care (01) ==
LOC: EMR 21:29
PROVIDERS: EMERGENCY PHYSICIAN Student in an Organized Health Care Education/Training Program; FAMILY PHYSICIAN Internal Medicine
DX: K20.80 Other esophagitis without bleeding (principal); G47.30 Sleep apnea, unspecified; I10 Essential (primary) hypertension; Z82.49 Family history of ischemic heart disease and other diseases of the circulatory system
CPT/HCPCS: 99282; 70360

== ENCOUNTER 2024-06-10 19:05 | Emergency (ER) | payer BC, SELFPAY ==
[2024-06-10 19:11] VITALS: BP 181/100
[2024-06-10 19:37] LABS: % Basophils 0.5 % (0-2); % Eosinophils 1.3 % (0-6); % Immature Granulocytes 0.2 % (0-0.5); % Lymphocytes 32.1 % (20.5-51.1); % Monocytes 7.7 % (1.7-9.3); % Neutrophils 58.2 % (42.2-75.2); Absolute Eosinophils 0.1 10^3/uL (0-0.7); Absolute Lymphocytes 1.8 10^3/uL (1.2-3.4); Absolute Monocytes 0.4 10^3/uL (0.1-0.6); Absolute Neutrophils 3.2 10^3/uL (1.4-6.5); Hematocrit 44.2 % (39.0-52.0); Hemoglobin 15.9 g/dL (13.0-18.0); Mean Corpuscular Hgb 31.6 pg (27.0-31.0); Mean Corpuscular Volume 87.9 fL (80.0-94.0); Mean Platelet Volume 8.8 fL (7.4-10.4); Nucleated Red Blood Cells % 0 % (-); Platelet Count 202 10^3/uL (130-400); Red Blood Cell Count 5.03 10^6/uL (4.70-6.10); White Blood Cell Count 5.6 10^3/uL (4.8-10.8)
[2024-06-10 19:54] LABS: ALT (SGPT) 22 U/L (0-50); AST (SGOT) 30 U/L (17-59); Albumin 5.1 g/dl (3.5-5.0); Alkaline Phosphatase 51 U/L (38-126); Blood Urea Nitrogen 15 mg/dl (9-20); Calcium 9.6 mg/dl (8.4-10.2); Carbon Dioxide 29 mmol/L (22-30); Chloride 98 mmol/L (98-107); Glucose 95 mg/dl (70-99); Potassium 3.9 mmol/L (3.5-5.1); Sodium 136 mmol/L (135-145); Total Protein 7.8 g/dl (6.3-8.2); eGFR > 60.00
[2024-06-10 20:01] LABS: Troponin I < 0.012 ng/ml
[2024-06-10 20:49] VITALS: BP 174/97
[2024-06-10 20:54] VITALS: BMI 26.2
[2024-06-10 21:00] VITALS: BP 152/91
--- NOTE | 2024-06-10 21:22 | ED.GENMED ---
History of Present Illness
General
Chief Complaint: Breathing Problem
Source: patient
Exam Limitations: none
Time Seen by Provider: 06/10/24 20:58
History of Present Illness
History of Present Illness:
58-year-old male complaining of shortness of breath with exertion for a few weeks mild in nature. Occurred today while driving home at rest. Admits to being anxious. Had an episode in the middle the night although he usually gets up first. Helen
like he could not take a deep breath. No true chest pain or chest pressure although did describe a tiny bit of tightness with 1 episode. No nausea or diaphoresis. Currently asymptomatic. Last episode was at about 5 [address] home.
Past History
Past History
ED Past Medical History: HTN and Other (Syncope with a positive tilt table test on Toprol XL for 14 years, sleep apnea with HS CPAP, mild hypertension)
ED Past Surgical History: Orthopedic and Other
Social History
Tobacco: Non-smoker
Alcohol: None
Family History
Family History: CAD and Other (He has a grandfather with polycystic kidneys but he has been tested and is negative)
Review of Systems
Review of Systems
All Other Systems: Not applicable
Constitutional: Denies fever or chills
Respiratory: Denies cough
Cardiac: Denies syncope
Phy Exam
Physical Exam
Physical Exam:
GENERAL: Alert and oriented in no apparent distress
EYE: Orbits normal.
NECK: Supple, no significant adenopathy.
ENT: Pharynx without erythema
CARDIAC: Regular rate and rhythm without any obvious murmurs.
LUNGS: Clear breath sounds,normal
ABDOMEN: Soft, without focal tenderness or distention
NEUROLOGICAL: Alert and oriented , grossly non-focal
SKIN: Warm and dry, no rash or lesion, no discoloration, skin intact.
MUSCULOSKELETAL: No edema,no deformity.Good color
PSYCH: Normal and appropriate interaction.
Scores
Heart Failure Risk
Heart Failure Risk Score: Not Applicable
Course
Orders/Labs/Results
Orders:
Orders
06/10/24 19:15
ECG [Electrocardiogram (*1)] Urgent
Reason for Study: Shortness of Breath
EKG- Treatment ONCE
06/10/24 19:29
Complete Blood Count/With Diff Urgent
Comprehensive Metabolic Panel Urgent
NT-proBNP Urgent
Comment: ADD ON
Troponin I Urgent
06/10/24 21:17
CXR2 [CR Chest - 2 Views ] Urgent
Comment:
Reason For Exam: Short of breath
06/10/24 21:21
Add On- LAB Urgent
Tests Added?: probnp
06/10/24 21:51
D-Dimer Urgent
06/10/24 22:21
Electrocardiogram (*1) Stat
Reason for Study: Other
Other Reason for Exam: chest pain
EKG- Treatment ONCE
06/10/24 22:27
Troponin I Urgent
Abnormal Lab Results
06/10/24
19:29
MCH 31.6 H pg
(27.0-31.0)
Albumin 5.1 H g/dl
(3.5-5.0)
06/10/24 19:29
06/10/24 19:29
Vital Signs
Initial and Last Documented VS:
Initial Vital Signs
Temp Pulse Resp BP Pulse Ox
98.0 F 60 16 181/100 100
06/10/24 19:11 06/10/24 19:11 06/10/24 19:11 06/10/24 19:11 06/10/24 19:11
Last Documented Vital Signs
Temp Pulse Resp BP Pulse Ox
98.0 F 47 18 128/91 95
06/10/24 19:11 06/10/24 23:12 06/10/24 23:12 06/10/24 23:00 06/10/24 23:15
MDM/Problems Addressed
Differential Diagnosis Includes:
Patient describing mostly exertional shortness of breath for the last few weeks. No true chest pressure no syncope no other complaints. Very low suspicion for CHF pulmonary emboli pneumonia infectious issue. Doubt cardiac with no risk factors
except for some family history very well-maintained blood pressure. Patient does walk half a mile in the morning and evenings without obvious issues.
*Pulse Oximetry
Patient hypoxic: no
*EKG
Interpreted by ED Provider?: Yes
Interpretation: abnormal
Comparison EKG: no changes
Heart Rate: 50
Rate: bradycardiac
Rhythm: sinus
[place]: normal axis
Interval: normal interval
QRS Pattern: normal QRS
Ischemia: no ischemia
*Critical Care Note
Total Time (30-74mins, 75-104mins- exclusive of procedures): Not Applicable
Update Note
Update Note:
Repeat EKG sinus bradycardia 45. No acute changes. Vague shortness of breath symptoms with a negative workup. Cardiac follow-up. Patient is bradycardic but has a long history of bradycardia and is not describing syncope.
ED Attending Note
-
Portions of this chart may have been created with voice recognition software.� Occasional wrong word or��sound alike� substitutions may have occurred due to the inherent limitations of voice recognition software.
Discharge Plan
Departure
Patient Disposition: Home (Routine Discharge)
Date of Disposition: 06/10/24
Time of Disposition: 23:42
Patient with high blood pressure during this ER visit?: Yes
Discharge Problem:
Dyspnea, To consider anginal equivalent
Instructions: Chest Pain DCA Follow Up
Prescriptions:
No Action
cholecalciferol (vitamin D3) 2,000 UNIT tablet
2,000 unit PO DAILY
omega 0-qid-zzp-fish oil [Fish Oil] 1 EACH capsule
2,000 mg PO DAILY
vitamin K2 100 mcg Capsule
100 mcg PO DAILY
cinnamon bark extract
150 mg PO DAILY
olive leaf extract
500 mg PO DAILY
zinc acetate 50 mg (zinc) Capsule
50 mg PO Q48H
ascorbic acid (vitamin C) [Vitamin C] 500 mg Tablet
500 mg PO DAILY
vitamin B complex Tablet
1 tab PO DAILY
omeprazole magnesium [Prilosec OTC] 20 mg Tablet,Delayed Release (Dr/Ec)
20 mg PO DAILY
magnesium glycinate 100 mg Tablet
100 mg PO DAILY
Curcumin
30 mg PO DAILY
fish oil-dha-epa
1,600 mg PO DAILY
audrey root extract
550 mg PO DAILY
magnesium L-threonate
77 mg PO DAILY
meclizine 12.5 mg Tablet
12.5 mg PO Q8HPRN PRN (Reason: dizziness) Qty: 30 0RF
docusate sodium 100 mg Capsule
100 mg PO BID Qty: 30 0RF
Rx Instructions:
Take twice a day while on Oxycodone for post-surgical bowel regimen.
oxycodone 5 mg Tablet
5 - 10 mg PO Q6H PRN (Reason: moderate-severe pain) Qty: 30 0RF
Rx Instructions:
1 tab for moderate pain, 2 if severe.
Dx lami.
guaifenesin 600 mg Tablet Extended Release 12hr
600 mg PO Q12 Qty: 30 0RF
sennosides [Senna Laxative] 8.6 mg Tablet
17.2 mg PO BID Qty: 30 0RF
Rx Instructions:
Take twice a day while on Oxycodone for post-surgical bowel regimen.
acetaminophen [Tylenol Extra Strength] 500 mg Tablet
1,000 mg PO Q6H Qty: 30 0RF
Rx Instructions:
DO NOT exceed >4000 mg daily.
ondansetron HCl 4 mg tablet
4 mg PO Q6H PRN (Reason: nausea and vomiting) Qty: 30 0RF
cephalexin 500 mg capsule
500 mg PO QID Qty: 20 0RF
Saccharomyces boulardii [Florastor] 250 mg capsule
250 mg PO BID Qty: 10 0RF
Rx Instructions:
Over the counter. Take while on antibiotic.
If unavailable, choose a different antibiotic.
pregabalin 75 mg capsule
75 mg PO BID Qty: 15 0RF
Rx Instructions:
Take twice a day x5 days, then once daily x5 days, then STOP.
sucralfate [Carafate] 100 mg/mL suspension
10 ml PO QID Qty: 200 0RF
Referrals:
Petey Guerra MD [Family Provider] - Follow up in 2-3 days
Activity Restrictions/Additional Instructions:
If you do not get a call by the cardiology group in the morning please call late in the morning.
Interventions
Interventions:
*Risk Screen - Suicide Last Done: 06/10/24 20:54
*General Assessment Last Done: 06/10/24 20:54
*Neglect/Abuse Screening Last Done: 06/10/24 20:54
*ED- Fall Risk Assessment Last Done: 06/10/24 20:54
*ED COVID-19 Vaccine History Last Done: 06/10/24 20:54
ED- Cardiac Assessment Last Done: 06/10/24 20:54
ED- Pulmonary Assessment Last Done: 06/10/24 20:54
Discharge Date and Time
Print Language: SETSWANA
[2024-06-10 22:16] LABS: D-Dimer < 0.27 ug/mlFEU (0.00-0.50)
[2024-06-10 22:21] LABS: NT-proBNP < 20.0 pg/ml
[2024-06-10 22:29] VITALS: BP 139/90
[2024-06-10 23:00] VITALS: BP 128/91
[2024-06-10 23:00] LABS: Troponin I < 0.012 ng/ml
== END 2024-06-10 23:51 | disposition home or self-care (01) ==
LOC: EMR 19:05
PROVIDERS: EMERGENCY PHYSICIAN Emergency Medicine; FAMILY PHYSICIAN Internal Medicine
DX: R06.00 Dyspnea, unspecified (principal); I10 Essential (primary) hypertension; G47.30 Sleep apnea, unspecified; Z79.899 Other long term (current) drug therapy
CPT/HCPCS: 99285; 71046; 80053; 83880; 84484; 85025; 85379; 93005